=== PATIENT | female | born 1955 | race Caucasian/White ===

== ENCOUNTER 2022-08-26 15:59 | Observation (INO) | payer MEDICARE ==
[2022-08-26] MEDS ORDERED: Nitroglycerin 2% Ointment 1 INCH/1 GM Packet ONE ×2 (17:08→22:01)
[2022-08-26] MEDS ORDERED: Meclizine HCl 25 MG TAB ONE ×2 (17:08→22:01)
[2022-08-26 18:08] LABS: #Basophils 0.1 thou/uL (0.0-0.2); #Eosinphils 0.2 thou/uL (0.0-0.7); #Monocytes 0.7 thou/uL (0.11-0.59); #Neutrophils 6.7 thou/uL (1.40-6.50); %Basophils 0.6 % (0.0-1.0); %Eosinophils 2.2 % (0.0-10.0); %Lymphocytes 20.7 % (21.0-51.0); %Monocytes 7.3 % (0.0-10.0); %Neutrophils 69.2 % (42.0-75.0); Mean Corpuscular HGB CONC 33.9 g/dL (32.0-36.0); Mean Corpuscular Hemoglobin 30.5 pg (27.0-31.0); Mean Platelet Volume 6.7 fL (7.4-10.4); Platelet Count 293 10x3/uL (130-400); Red Blood Cell (RBC) Count 3.93 mill/uL (4.20-5.40); White Blood Cell (WBC) Count 9.6 10x3/uL (4.8-10.8)
[2022-08-26 18:30] LABS: ALT (SGPT) 17 U/L (8-55); AST (SGOT) 17 U/L (5-34); Albumin 4.6 g/dL (3.4-4.8); Alkaline Phosphatase 96 U/L (40-110); Anion Gap 15 mmol/L (10-20); BUN (Urea Nitrogen) 14 mg/dL (9.8-20.1); Bilirubin, Total 0.5 mg/dL (0.2-1.2); Calc. Creatinine Clearance 0 mL/min (70-130); Calcium 9.8 mg/dL (7.8-10.44); Carbon Dioxide 23 mmol/L (23-31); Chloride 97 mmol/L (98-107); Estimated GFR 81; Globulin 3.2 g/dL (2.4-3.5); Glucose 144 mg/dL (80-115); Potassium 4.1 mmol/L (3.5-5.1); Protein, Total 7.8 g/dL (5.8-8.1); Sodium 131 mmol/L (136-145)
[2022-08-26] MEDS ORDERED: Senokot S 8.6-50 MG TAB PO PRN (19:19)
[2022-08-26] MEDS ORDERED: Calcium Carbonate 500 MG ChewTAB PO PRN (19:19)
[2022-08-26] MEDS ORDERED: Ondansetron PF 4 MG/2 ML Vial IVP PRN (19:19)
[2022-08-26] MEDS ORDERED: Acetaminophen 325 MG TAB PO PRN (19:19)
[2022-08-26] MEDS ORDERED: Ondansetron ODT 4 MG TAB PO PRN (19:19)
[2022-08-26] MEDS ORDERED: Dextrose 50% Abboject 50 ML SYRINGE SLOW IVP PRN (19:22)
[2022-08-26] MEDS ORDERED: Dextrose 5% in Water 1,000 ML IV PRN (19:22)
[2022-08-26] MEDS ORDERED: HumaLOG 300 UNITS/3 ML VIAL SC PRN ×2 (19:22)
[2022-08-26] MEDS ORDERED: hydrALAZINE 20 MG/ML VIAL SLOW IVP PRN (19:23)
[2022-08-26] MEDS ORDERED: Sodium Chloride 0.9% 1,000 ML IV SCH (19:30)
[2022-08-26] MEDS ORDERED: predniSONE 20 MG TAB PO SCH (20:15)
[2022-08-26] MEDS ORDERED: Venlafaxine HCl XR 150 MG CAP PO SCH (21:00)
[2022-08-26] MEDS ORDERED: Simvastatin 5 MG TAB PO SCH (21:00)
[2022-08-26 22:00] LABS: Troponin I Less than 0.010 ng/mL (< 0.028)
[2022-08-26] MEDS ORDERED: Famotidine/PF 20 mg/2ml Vial ONE (22:01)
[2022-08-26] MEDS ORDERED: predniSONE 20 MG TAB ONE (22:01)
[2022-08-26] MEDS: Nitroglycerin 2% Ointment 1 INCH/1 GM Packet TOP SCH (22:31)
[2022-08-26] MEDS: Famotidine/PF 20 mg/2ml Vial SLOW IVP SCH (22:31)
[2022-08-26] MEDS: Meclizine HCl 25 MG TAB PO SCH (22:31)
[2022-08-26] MEDS: Apixaban 5 MG TAB PO SCH (23:58)
[2022-08-27 00:08] VITALS: BMI 29.5
[2022-08-27 02:16] LABS: Troponin I Less than 0.010 ng/mL (< 0.028)
[2022-08-27 04:56] LABS: #Monocytes 0.1 thou/uL (0.11-0.59); %Basophils 0.3 % (0.0-1.0); %Eosinophils 0.6 % (0.0-10.0); %Lymphocytes 14.4 % (21.0-51.0); %Monocytes 1.8 % (0.0-10.0); Hemoglobin 12.8 g/dL (12.0-16.0); Mean Corpuscular HGB CONC 34.8 g/dL (32.0-36.0); Mean Corpuscular Hemoglobin 31.7 pg (27.0-31.0); Mean Corpuscular Volume 91.3 fl (78.0-98.0); Platelet Count 254 10x3/uL (130-400); RBC Distribution Width 13.1 % (11.5-14.5); Red Blood Cell (RBC) Count 4.02 mill/uL (4.20-5.40); White Blood Cell (WBC) Count 7.2 10x3/uL (4.8-10.8)
[2022-08-27 05:04] LABS: Hemoglobin A1c 6.8 % (4.0-6.0)
[2022-08-27 05:10] LABS: ALT (SGPT) 16 U/L (8-55); AST (SGOT) 15 U/L (5-34); Albumin 4.5 g/dL (3.4-4.8); Alkaline Phosphatase 95 U/L (40-110); Anion Gap 14 mmol/L (10-20); BUN (Urea Nitrogen) 12 mg/dL (9.8-20.1); Bilirubin, Total 0.3 mg/dL (0.2-1.2); Calc. Creatinine Clearance 81 mL/min (70-130); Calcium 10.3 mg/dL (7.8-10.44); Carbon Dioxide 24 mmol/L (23-31); Cardiac Risk 5.2 (Less than 4.5); Chloride 101 mmol/L (98-107); Cholesterol 194 mg/dl (< 200 Desired); Estimated GFR 67; Globulin 3.4 g/dL (2.4-3.5); Glucose 262 mg/dL (80-115); HDL Cholesterol 37 mg/dL (>60 Neg Risk); LDL Cholesterol, Calculated 122 mg/dL; Potassium 4.4 mmol/L (3.5-5.1); Protein, Total 7.9 g/dL (5.8-8.1); Sodium 135 mmol/L (136-145); Triglycerides 175 mg/dL (Less than 150)
[2022-08-27] MEDS: Meclizine HCl 25 MG TAB PO SCH ×2 (06:13→14:40)
[2022-08-27] MEDS: Nitroglycerin 2% Ointment 1 INCH/1 GM Packet TOP SCH ×2 (06:13→14:41)
[2022-08-27] MEDS ORDERED: predniSONE 20 MG TAB PO SCH (08:00)
[2022-08-27] MEDS: Apixaban 5 MG TAB PO SCH (08:03)
[2022-08-27] MEDS ORDERED: Losartan 25 MG TAB PO SCH (09:00)
[2022-08-27] MEDS ORDERED: busPIRone HCl 5 MG TAB PO SCH (09:00)
[2022-08-27] MEDS ORDERED: Aspirin 81 mg Enteric Coated Tablet PO SCH (09:00)
[2022-08-27] MEDS ORDERED: Regadenoson 0.4 MG/5 ML SYRINGE ONE (13:51)
[2022-08-27] MEDS: Famotidine/PF 20 mg/2ml Vial SLOW IVP SCH (14:40)
[2022-08-27 16:10] VITALS: BP 139/69; TEMP 97.9
[2022-08-27] MEDS ORDERED: Simvastatin 10 MG TAB PO SCH (21:00)
[2022-08-27] MEDS ORDERED: Atorvastatin Calcium 20 MG TAB PO SCH (21:00)
== END 2022-08-27 15:45 | disposition home or self-care (01) ==
LOC: ERS 15:59 → SUATTDRO 15:59 → ERHOLD 19:19 → 2NO 23:48
PROVIDERS: ADMIT Internal Medicine; ATTEND Internal Medicine
DX: R07.89 Other chest pain (principal); R06.02 Shortness of breath; R42 Dizziness and giddiness; R11.2 Nausea with vomiting, unspecified; I48.91 Unspecified atrial fibrillation; E11.9 Type 2 diabetes mellitus without complications; E78.5 Hyperlipidemia, unspecified; I10 Essential (primary) hypertension; I25.119 Atherosclerotic heart disease of native coronary artery with unspecified angina pectoris; I25.2 Old myocardial infarction; E66.9 Obesity, unspecified; Z68.29 Body mass index [BMI] 29.0-29.9, adult; Z79.01 Long term (current) use of anticoagulants; Z79.82 Long term (current) use of aspirin; Z79.84 Long term (current) use of oral hypoglycemic drugs; Z79.899 Other long term (current) drug therapy
CPT/HCPCS: 71045; 78452; 80053 ×2; 80061; 82962; 83036; 84484 ×3; 85025 ×2; 93005; 93017; 99285; A9500; 36415; 36416; 96374; 96376; G0378; J2785; J7050; J7512; S0028